=== PATIENT | female | born 1965 | race Caucasian/White ===

== ENCOUNTER 2020-11-05 12:20 | Emergency (ER) | payer OTHER ==
[~2020-11-05] VITALS: Ht 162.6 cm; Wt 72.3 kg
[2020-11-05 13:35] VITALS: BP 116/56
--- NOTE | 2020-11-05 14:41 | PHYS DOC ---
Past Medical History Past Medical History: Anxiety, Depression Past Surgical History: No Surgical History Smoking Status: Never Smoker Alcohol Use: None General Adult EDM: Chief Complaint: HEADACHE HPI: HPI: Patient is a 55-year-old female with history of depression, anxiety, who presents to the ED today complaining of moderate pain on her forehead/nasal bridge, symptoms began yesterday after she accidentally got hit by a can of soup. Patient states she was walking behind her girlfriend who was holding a can of soup and it accidentally hit her around her nasal bridge/forehead. Pat mackenzie states she bled for 1-1/2 hours. Patient presents today asking for something stronger for her pain. She states she has taken Tylenol with no relief. Patient has spent an incredible amount of time complaining about pain Review of Systems: Review of Systems: Constitutional: Denies fever or chills. [] Eyes: Denies change in visual acuity. [] HENT: Reports nasal contusion. Denies nasal congestion or sore throat. [] Respiratory: Denies cough or shortness of breath. [] Cardiovascular: Denies chest pain or edema. [] GI: Denies abdominal pain, nausea, vomiting, bloody stools or diarrhea. [] : Denies dysuria. [] Musculoskeletal: Denies back pain or joint pain. [] Integument: Denies rash. [] Neurologic: Reports headache, denies focal weakness or sensory changes. [] Psychiatric: Denies depression or anxiety. [] Heart Score: Risk Factors: Risk Factors: DM, Current or recent (<one month) smoker, HTN, HLP, family history of CAD, obesity. Risk Scores: Score 0 - 3: 2.5% MACE over next 6 weeks - Discharge Home Score 4 - 6: 20.3% MACE over next 6 weeks - Admit for Clinical Observation Score 7 - 10: 72.7% MACE over next 6 weeks - Early Invasive Strategies Physical Exam: PE: Constitutional: Well developed, well nourished, no acute distress, non-toxic gerard earance. [] HENT: No nasal deformity noted. Normocephalic, bilateral external ears normal, oropharynx moist, no oral exudates, nose normal. [] Eyes: PERRLA, EOMI, conjunctiva normal, no discharge. [] Neck: Normal range of motion, no tenderness, supple, no stridor. [] Cardiovascular:Heart rate regular rhythm, no murmur [] Lungs & Thorax: Bilateral breath sounds clear to auscultation [] Abdomen: Bowel sounds normal, soft, no tenderness, no masses, no pulsatile masses. [] Skin: Warm, dry, no erythema, no rash. [] Back: No tenderness, no CVA tenderness. [] Extremities: No tenderness, no cyanosis, no clubbing, ROM intact, no edema. [] Neurologic: Alert and oriented X 3, normal motor function, normal sensory function, no focal deficits noted. Cranial nerves II through XII intact Psychologic: Affect normal, judgement normal, mood normal. [] Current Patient Data: Vital Signs: Vital Signs Date Time Temp Pulse Resp B/P (MAP) Pulse Ox O2 Delivery O2 Flow Rate FiO2 11/05/20 13:35 98.2 71 18 116/56 (76) 100 Room Air 98.2 EKG: EKG: [] Radiology/Procedures: Radiology/Procedures: [] Course & Med Decision Making: Course & Med Decision Making Pertinent Labs and Imaging studies reviewed. (See chart for details) This is a 55-year-old female patient presenting to the ED today stating she got hit on her nasal bridge/forehead by a can of soup. See HPI. Patient presents to the ED today requesting something strong for her pain. Patient has spent an incredible amount of time talking about this pain and asking if we can give her something stronger than OTC medicines for pain. Informed her considering she has a possible head injury with nose injury we recommend a CT of the head and maxillofacial to rule out any injury. Informed her with any head injury it is recommended we avoid any narcotics to avoid masking any CHI symptoms. Recommended tylenol. Patient continually asking and begging for pain medicine, stating she wants something stronger than Tylenol. She stated if we are not going to give her anything stronger for her pain she will walk away. Informed patient I would recommend we get the CAT scan of the head and face first and see if there is any good reason for her pain. She continued to states she wants something stronger for her pain and will not stay in the ED if we do not give her something stronger for her pain. She states Tylenol is not helping her. Informed patient at this point I am going to order the CAT scan and Tylenol for pain A couple minutes later the RN informed me patient signed out AGAINST MEDICAL ADVICE stating she cannot be in the ED if we are not doing to give her anything stronger for her pain. She is alert oriented x4 and able to make her own decisions. She walked away Manuel Disclaimer: Manuel Disclaimer: This electronic medical record was generated, in whole or in part, using a voice recognition dictation system. Departure Departure Impression: Primary Impression: Forehead contusion Qualified Codes: S00.83XA - Contusion of other part of head, initial encounter Additional Impressions: Nasal contusion Qualified Codes: S00.33XA - Contusion of nose, initial encounter Epistaxis Disposition: 07 AMA/ELOPED/LWBS Condition: STABLE Referrals: NO PCP (PCP) ALYSA SANTIAGO APRN Nov 05, 2020 14:41
== END 2020-11-05 13:35 | disposition left against medical advice (07) ==
LOC: ER 12:20
DX: S00.83XA Contusion of other part of head, initial encounter (principal); S00.33XA Contusion of nose, initial encounter; F41.9 Anxiety disorder, unspecified; F32.9 Major depressive disorder, single episode, unspecified; W22.8XXA Striking against or struck by other objects, initial encounter; Y93.89 Activity, other specified; Y92.89 Other specified places as the place of occurrence of the external cause; Y99.8 Other external cause status
CPT/HCPCS: 99282

== ENCOUNTER 2021-01-27 07:38 | Emergency (ER) | payer OTHER ==
[~2021-01-27] VITALS: Ht 162.6 cm; Wt 83.0 kg
[2021-01-27 08:04] VITALS: BP 116/56
== END 2021-01-27 08:50 | disposition left against medical advice (07) ==
LOC: ER 07:38
DX: R51.9 Headache, unspecified (principal); G89.11 Acute pain due to trauma; Z53.21 Procedure and treatment not carried out due to patient leaving prior to being seen by health care provider; W10.8XXA Fall (on) (from) other stairs and steps, initial encounter; Y93.89 Activity, other specified; Y92.89 Other specified places as the place of occurrence of the external cause; Y99.8 Other external cause status

== ENCOUNTER 2021-02-16 19:26 | Emergency (ER) | payer OTHER ==
[~2021-02-16] VITALS: Ht 162.6 cm; Wt 81.1 kg
[2021-02-16] MEDS ORDERED: FAMOTIDINE 20 MG/2 ML VIAL IVP ONE (20:15)
[2021-02-16] MEDS ORDERED: IV NORMAL SALINE 1000ML BAG 1,000 ML IV ONE (20:15)
[2021-02-16] MEDS ORDERED: fentaNYL PF VIAL 100 MCG/2 ML VIAL IV ONE (20:15)
[2021-02-16] MEDS ORDERED: ONDANSETRON PF 4 MG/2 ML VIAL. IVP ONE (20:15)
[2021-02-16 20:20] LABS: BILIRUBIN,URINE NEGATIVE (NEG); CLARITY,URINE CLEAR; COLOR,URINE YELLOW; NITRITE,URINE NEGATIVE (NEG); PROTEIN,URINE NEGATIVE (NEG-TRACE); UROBILINOGEN,URINE 0.2 mg/dL (0.2 mg/dL)
[2021-02-16 20:21] LABS: BASO # 0.1 x10^3/uL (0.0-0.2); BASO % 1 % (0-3); EOS # 0.4 x10^3/uL (0.0-0.7); EOS % 5 % (0-3); HEMATOCRIT 40.6 % (36.0-47.0); HEMOGLOBIN 14.1 g/dL (12.0-15.5); LYMPH % 26 % (24-48); MEAN CORPUSCULAR HEMOGLOBIN 31 pg (25-35); MEAN CORPUSCULAR HGB CONC 35 g/dL (31-37); MEAN CORPUSCULAR VOLUME 90 fL (79-100); MONO # 0.9 x10^3/uL (0.0-1.1); MONO % 11 % (0-9); NEUT # 4.5 x10^3/uL (1.8-7.7); NEUT % 58 % (31-73); PLATELET COUNT 206 x10^3/uL (140-400); RED BLOOD COUNT 4.54 x10^6/uL (3.50-5.40); RED CELL DISTRIBUTION WIDTH 13.2 % (11.5-14.5); WHITE BLOOD COUNT 7.8 x10^3/uL (4.0-11.0)
[2021-02-16 20:32] LABS: BACTERIA,URINE MODERATE /HPF (0-FEW)
[2021-02-16 20:37] LABS: CALCIUM 9.1 mg/dL (8.5-10.1); CREATININE 0.7 mg/dL (0.6-1.0); GFR 86.2
[2021-02-16 20:49] LABS: CREATINE KINASE 49 U/L (26-192)
[2021-02-16 20:58] LABS: ALBUMIN/GLOBULIN RATIO 1.7 (1.0-1.7); TOTAL BILIRUBIN 0.3 mg/dL (0.2-1.0); TOTAL PROTEIN 6.3 g/dL (6.4-8.2)
[2021-02-16] MEDS ORDERED: CONTRAST GIVEN. MC PRN (21:15)
[2021-02-16] MEDS ORDERED: IOHEXOL 300 MG/ML 100ML VIAL. IV ONE (21:30)
[2021-02-16] MEDS ORDERED: KETOROLAC 15 MG/ML VIAL. IVP ONE (21:30)
[2021-02-16] MEDS ORDERED: IOHEXOL 240 MG/ML 50ML VIAL. PO ONE (21:30)
--- NOTE | 2021-02-16 22:13 | RAD ---
Exam Date: 02/16/2021 8:[address] ABDOMEN+PELVIS W Indication: Reason: LLQ abdominal pain, hx of diverticulitis, constipation / Spl. Instructions: DRINK @2039 OMNI 240 50 ML PO, OMNI 300 75 ML IV @2139 / History: TECHNIQUE: CT examination of the abdomen and pelvis was performed following the administration of or al and nonionic intravenous contrast. One or more of the following dose reduction techniques were ut ilized: *Automated exposure control (AEC) *Adjustment of mA and/or kV according to patient size *Use of iterative reconstruction technique *CT scan done according to ALARA, or ALARA/IMAGE GENTLY COMPARISON: November 13, 2020 FINDINGS: The visualized lung bases are clear. There is a liver cyst as well as multiple too small to characterize hypodensities in the liver, simil ar compared to the prior exam. The liver, gallbladder, spleen, pancreas, adrenal glands and kidneys are otherwise normal. Urinary bladder is normal in appearance. Diverticulosis coli is seen without bowel obstruction or inflammation. The appendix is normal. Mild atherosclerotic calcifications are seen. No lymphadenopathy or ascites is seen. Degenerative changes are seen in the spine. IMPRESSION: No evidence of acute intra-abdominal pathology. Diverticulosis without bowel inflammation or obstruction. Electronically signed by: Bossman Bowman MD (02/16/2021 10:11 PM) [facility]
[2021-02-16 22:32] VITALS: BP 124/60
[2021-02-16] MEDS ORDERED: POLY119P4 PO (22:43)
[2021-02-16] MEDS ORDERED: HYOS0.1265 SL (22:43)
[2021-02-16] MEDS ORDERED: ONDA4TAB12 PO (22:43)
[2021-02-16] MEDS ORDERED: SENN-121 PO (22:43)
--- NOTE | 2021-02-16 22:43 | PHYS DOC ---
Past Medical History Past Medical History: Anxiety, Depression, Diverticulitis, Diverticulosis Past Surgical History: No Surgical History Smoking Status: Never Smoker Alcohol Use: None General Adult EDM: Chief Complaint: CONSTIPATION HPI: HPI: Patient is a 55 year old [f__sex] who presents with [] Review of Systems: Review of Systems: Constitutional: Denies fever or chills Eyes: Denies redness or eye pain HENT: Denies nasal congestion or sore throat Respiratory: Denies cough or shortness of breath Cardiovascular: Denies chest pain or palpitations GI: Denies abdominal pain, nausea, or vomiting : Denies dysuria or hematuria Musculoskeletal: Denies back pain or joint pain Integument: Denies rash or skin lesions Neurologic: Denies headache, focal weakness or sensory changes Complete systems were reviewed and found to be within normal limits, except as documented in this note. Heart Score: C/O Chest Pain: N/A Current Medications: Current Medications Medications (Trade) Dose Ordered Sig/Rhea Start Time Stop Time Status Last Admin Dose Admin Famotidine (Pepcid Vial) 20 mg 1X ONCE 02/16/21 20:15 02/16/21 20:39 DC 02/16/21 20:53 20 MG Fentanyl Citrate (Fentanyl 2ml Vial) 50 mcg 1X ONCE 02/16/21 20:15 02/16/21 20:39 DC 02/16/21 20:49 50 MCG Info (CONTRAST GIVEN -- Rx MONITORING) 1 each PRN DAILY PRN 02/16/21 21:15 02/18/21 21:14 Iohexol (Omnipaque 240 Mg/ml) 50 ml 1X ONCE 02/16/21 21:30 02/16/21 21:31 DC 02/16/21 21:34 50 ML Iohexol (Omnipaque 300 Mg/ml) 75 ml 1X ONCE 02/16/21 21:30 02/16/21 21:31 DC 02/16/21 21:58 75 ML Ketorolac Tromethamine (Toradol 15mg Vial) 15 mg 1X ONCE 02/16/21 21:30 02/16/21 21:31 DC 02/16/21 21:23 15 MG Ondansetron HCl (Zofran) 4 mg 1X ONCE 02/16/21 20:15 02/16/21 20:39 DC 02/16/21 20:53 4 MG Sodium Chloride 1,000 ml @ 1,000 mls/hr 1X ONCE 02/16/21 20:15 02/16/21 21:14 DC 02/16/21 20:49 1,000 MLS/HR Allergies: Allergies: Allergies Coded Allergies Type Severity Reaction Last Updated Verified Sulfa (Sulfonamide Antibiotics) Allergy Intermediate SWELLING 02/16/21 Yes morphine Allergy Intermediate RASH 02/16/21 Yes quetiapine Allergy Intermediate SEIZURE 02/16/21 Yes Physical Exam: PE: Constitutional: Well developed, well nourished, no acute distress, non-toxic appearance HENT: Normocephalic, atraumatic Eyes: PERRL, EOMI, conjunctiva normal, no discharge Neck: Normal range of motion, no tenderness, supple Lungs & Thorax: No respiratory distress, equal chest rise and fall Abdomen: Soft, no tenderness Skin: Warm, dry, no erythema, no rash Back: No tenderness, no CVA tenderness Extremities: No tenderness, ROM intact, no edema Neurologic: Alert and oriented X 3, normal motor function, normal sensory function, no focal deficits noted Psychologic: Affect normal, judgment normal Current Patient Data: Labs: Laboratory Tests Test 02/16/21 19:40 02/16/21 20:14 Urine Collection Type Unknown Urine Color Yellow Urine Clarity Clear Urine pH 8.0 (<5.0-8.0) Urine Specific Dixon >=1.030 (1.000-1.030) Urine Protein Negative mg/dL (NEG-TRACE) Urine Glucose (UA) Negative mg/dL (NEG) Urine Ketones (Stick) Negative mg/dL (NEG) Urine Blood Negative (NEG) Urine Nitrite Negative (NEG) Urine Bilirubin Negative (NEG) Urine Urobilinogen Dipstick 0.2 mg/dL (0.2 mg/dL) Urine Leukocyte Esterase Small (NEG) Urine RBC 1-2 /HPF (0-2) Urine WBC 5-10 /HPF (0-4) Urine Squamous Epithelial Cells Mod /LPF Urine Bacteria Moderate /HPF (0-FEW) White Blood Count 7.8 x10^3/uL (4.0-11.0) Red Blood Count 4.54 x10^6/uL (3.50-5.40) Hemoglobin 14.1 g/dL (12.0-15.5) Hematocrit 40.6 % (36.0-47.0) Mean Corpuscular Volume 90 fL (79-100) Mean Corpuscular Hemoglobin 31 pg (25-35) Mean Corpuscular Hemoglobin Concent 35 g/dL (31-37) Red Cell Distribution Width 13.2 % (11.5-14.5) Platelet Count 206 x10^3/uL (140-400) Neutrophils (%) (Auto) 58 % (31-73) Lymphocytes (%) (Auto) 26 % (24-48) Monocytes (%) (Auto) 11 % (0-9) H Eosinophils (%) (Auto) 5 % (0-3) H Basophils (%) (Auto) 1 % (0-3) Neutrophils # (Auto) 4.5 x10^3/uL (1.8-7.7) Lymphocytes # (Auto) 2.0 x10^3/uL (1.0-4.8) Monocytes # (Auto) 0.9 x10^3/uL (0.0-1.1) Eosinophils # (Auto) 0.4 x10^3/uL (0.0-0.7) Basophils # (Auto) 0.1 x10^3/uL (0.0-0.2) Sodium Level 143 mmol/L (136-145) Potassium Level 4.0 mmol/L (3.5-5.1) Chloride Level 107 mmol/L (98-107) Carbon Dioxide Level 25 mmol/L (21-32) Anion Gap 11 (6-14) Blood Urea Nitrogen 15 mg/dL (7-20) Creatinine 0.7 mg/dL (0.6-1.0) Estimated GFR (Cockcroft-Gault) 86.2 BUN/Creatinine Ratio 21 (6-20) H Glucose Level 115 mg/dL (70-99) H Lactic Acid Level 0.7 mmol/L (0.4-2.0) Calcium Level 9.1 mg/dL (8.5-10.1) Total Bilirubin 0.3 mg/dL (0.2-1.0) Aspartate Amino Transferase (AST) 18 U/L (15-37) Alanine Aminotransferase (ALT) 32 U/L (14-59) Alkaline Phosphatase 83 U/L (46-116) Creatine Kinase 49 U/L (26-192) Creatine Kinase MB (Mass) 0.5 ng/mL (0.0-3.6) Creatine Kinase MB Relative Index % (0-4) Troponin I Quantitative < 0.017 ng/mL (0.000-0.055) Total Protein 6.3 g/dL (6.4-8.2) L Albumin 4.0 g/dL (3.4-5.0) Albumin/Globulin Ratio 1.7 (1.0-1.7) Lipase 141 U/L (73-393) Laboratory Tests 02/16/21 20:14 Laboratory Tests 02/16/21 20:14 Vital Signs: Vital Signs Date Time Temp Pulse Resp B/P (MAP) Pulse Ox O2 Delivery O2 Flow Rate FiO2 02/16/21 21:23 22 96 Room Air 02/16/21 19:30 98.4 71 93/53 (66) 98.4 EKG: EKG: @2203 NSR at 81bpm, NO ST elevation, QRS 90ms, QT/QTc 364/428ms, baseline artifact noted Radiology/Procedures: Radiology/Procedures: PROCEDURE: CT ABD PELV W/ORAL&IV CONTRAST Exam Date: 02/16/2021 8:[address] ABDOMEN+PELVIS W Indication: Reason: LLQ abdominal pain, hx of diverticulitis, constipation / Spl. Instructions: DRINK @2039 OMNI 240 50 ML PO, OMNI 300 75 ML IV @0 / History: TECHNIQUE: CT examination of the abdomen and pelvis was performed following the administration of oral and nonionic intravenous contrast. One or more of the following dose reduction techniques were utilized: *Automated exposure control (AEC) *Adjustment of mA and/or kV according to patient size *Use of iterative reconstruction technique *CT scan done according to ALARA, or ALARA/IMAGE GENTLY COMPARISON: November 13, 2020 FINDINGS: The visualized lung bases are clear. There is a liver cyst as well as multiple too small to characterize hypodensities in the liver, similar compared to the prior exam. The liver, gallbladder, spleen, pancreas, adrenal glands and kidneys are otherwise normal. Urinary bladder is normal in appearance. Diverticulosis coli is seen without bowel obstruction or inflammation. The appendix is normal. Mild atherosclerotic calcifications are seen. No lymphadenopathy or ascites is seen. Degenerative changes are seen in the spine. IMPRESSION: No evidence of acute intra-abdominal pathology. Diverticulosis without bowel inflammation or obstruction. Electronically signed by: Bossman Bowman MD (02/16/2021 10:11 PM) [facility] Course & Med Decision Making: Course & Med Decision Making Pertinent Labs and Imaging studies reviewed. (See chart for details) Patient stable for discharge with outpatient follow-up with PCP/GI. GI referral provided. Discussed findings and plan with patient, who acknowledges understanding and agreement. Dragon Disclaimer: Dragon Disclaimer: This electronic medical record was generated, in whole or in part, using a voice recognition dictation system. Departure Departure Impression: Primary Impression: Abdominal pain Qualified Codes: R10.32 - Left lower quadrant pain Additional Impression: Nausea Disposition: HOME / SELF CARE / HOMELESS Condition: STABLE Referrals: NO PCP (PCP) AD CAMEJO MD Patient Instructions: Abdominal Pain, Xaob-cy-Mgba, Constipation, Adult, [id number], Nausea, Adult, [id number] Additional Instructions: Increase fluid hydration Scripts Polyethylene Glycol 3350 (MIRALAX) 119 Gm Powder 17 GM PO DAILY PRN for CONSTIPATION, #255 GM 0 Refills dissolve in water Prov: CLIFTON HUGHES DO 02/16/21 Sennosides/Docusate Sodium (Colace 2-in-1 Tablet) 1 Each Tablet 1 TAB PO QHS, #30 TAB 0 Refills Prov: CLIFTON HUGHES DO 02/16/21 Ondansetron (ONDANSETRON ODT) 4 Mg Tab.rapdis 1 TAB PO PRN Q6-8HRS PRN for NAUSEA, #16 TAB Prov: CLIFTON HUGHES DO 02/16/21 Hyoscyamine Sulfate (LEVSIN-SL) 0.125 Mg Tab.subl 0.125 MG SL Q4-6HRS PRN for PAIN, #14 TAB Prov: CLIFTON HUGHES DO 02/16/21 CLIFTON HUGHES DO Feb 16, 2021 22:43
[2021-02-16] MEDS ORDERED: HYOSCYAMINE 0.125 MG TAB.RAPDIS PO ONE (23:00)
--- NOTE | 2021-02-16 23:02 | EKG ---
[facility] [address] [place] [address] Test Date: 2021-02-16 Test Time: 22:03:28 Pat Name: ASHLYN HARE Department: Room: Gender: F Drafter Cartographic: : 1965 Requested By: CLIFTON HUGHES Order Number: [id number] Reading MD: Measurements Intervals Nathalie Rate: 81 P: 52 MD: 132 QRS: 62 QRSD: 90 T: 34 QT: 364 QTc: 428 Interpretive Statements SINUS RHYTHM LEFT ATRIAL ABNORMALITY ABNORMAL ECG RI6.02 No previous ECG available for comparison
--- NOTE | 2021-02-19 10:28 | NUR ---
I spoke with the patient about her urine culture result. Pt is experiencing increased urinary frequency. Will call in rx for Ciprofloxacin 500 mg PO BID x5 days to the [facility] on [address] as requested. I encouraged pt to follow up with her PCP.
== END 2021-02-16 22:52 | disposition home or self-care (01) ==
LOC: ER 19:26
DX: R10.32 Left lower quadrant pain (principal); R11.0 Nausea; Z88.2 Allergy status to sulfonamides; Z88.5 Allergy status to narcotic agent; Z88.8 Allergy status to other drugs, medicaments and biological substances
CPT/HCPCS: 36415; 74177; 80053; 81001; 82553; 83605; 83690; 84484; 85025; 87077; 87086; 87186; 93005; 96361; 96374; 96375; 99285; J1885; J2405; J3010; J3490; J7030; Q9966; Q9967

== ENCOUNTER 2021-02-23 12:19 | Emergency (ER) | payer OTHER ==
[~2021-02-23] VITALS: Ht 162.6 cm; Wt 74.0 kg
[~2021-02-23 12:19] MED LIST: HYOS0.1265 SL; ONDA4TAB12 PO; POLY119P4 PO; SENN-121 PO
--- NOTE | 2021-02-23 13:36 | RAD ---
ABDOMEN AP, UPRIGHT AND SUPINE Clinical Indication: Reason: constipation, pain / Comparison: CT abdomen and pelvis with contrast February 16, 2021. Findings: Visualized lung bases are clear. No dilated loops of bowel are seen. The bowel gas pattern is nonobstructive. There are diverticula of the distal colon. There are no air-fluid levels on the upright image. No organomegaly is seen. There is no radiopaque foreign body or calculus. There is no acute bony abnormality. IMPRESSION: Nonobstructive bowel gas pattern. Electronically signed by: Jamey Wyatt MD (02/23/2021 1:34 PM) [facility]
[2021-02-23] MEDS ORDERED: MAGNESIUM CITRATE 296 ML SOLUTION. PO ONE (14:00)
[2021-02-23] MEDS ORDERED: ONDANSETRON ODT 4 MG TAB.RAPDIS. PO ONE (14:00)
[2021-02-23] MEDS ORDERED: BISACODYL 5 MG TABLET.DR. PO STA (14:00)
[2021-02-23] MEDS ORDERED: fentaNYL PF VIAL 100 MCG/2 ML VIAL IM ONE (14:00)
[2021-02-23 15:20] VITALS: BP 127/86
--- NOTE | 2021-02-23 15:47 | PHYS DOC ---
Past Medical History Past Medical History: Anxiety, Depression, Diverticulitis, Diverticulosis Past Surgical History: No Surgical History Smoking Status: Never Smoker Alcohol Use: None General Adult EDM: Chief Complaint: ABDOMINAL PAIN HPI: HPI: Patient is a 55 year old female with history of anxiety, diverticulitis, diverticulosis, depression, who presents to the ED today to be evaluated for 8 out of 10 left lower quadrant abdominal pain described as cramping and intermittent, symptoms began 8 days ago. Patient states she has not had normal bowel movement for 8 days. She states she was seen in the ED 8 days ago was diagnosed with diverticulosis and constipation, was sent home with high hycosamine, senna docusate, and MiraLAX. She states she did not take MiraLAX. She states she took the same for 1 or 2 days. Patient is very insistent on having pain medicine. She states her last bowel movement was 8 days ago and small. Patient is very insistent on getting pain medicine. Review of Systems: Review of Systems: Constitutional: Denies fever or chills. [] Eyes: Denies change in visual acuity. [] HENT: Denies nasal congestion or sore throat. [] Respiratory: Denies cough or shortness of breath. [] Cardiovascular: Denies chest pain or edema. [] GI: Reports abdominal pain with constipation, denies nausea, vomiting, bloody stools or diarrhea. [] : Denies dysuria. [] Musculoskeletal: Denies back pain or joint pain. [] Integument: Denies rash. [] Neurologic: Denies headache, focal weakness or sensory changes. [] Psychiatric: Denies depression or anxiety. [] Heart Score: C/O Chest Pain: N/A Risk Factors: Risk Factors: DM, Current or recent (<one month) smoker, HTN, HLP, family history of CAD, obesity. Risk Scores: Score 0 - 3: 2.5% MACE over next 6 weeks - Discharge Home Score 4 - 6: 20.3% MACE over next 6 weeks - Admit for Clinical Observation Score 7 - 10: 72.7% MACE over next 6 weeks - Early Invasive Strategies Current Medications: Current Medications Medications (Trade) Dose Ordered Sig/Rhea Start Time Stop Time Status Last Admin Dose Admin Bisacodyl (Dulcolax Tab) 10 mg 1X STAT 02/23/21 14:00 02/23/21 14:02 DC 02/23/21 14:48 10 MG Fentanyl Citrate (Fentanyl 2ml Vial) 50 mcg 1X ONCE 02/23/21 14:00 02/23/21 14:02 DC 02/23/21 14:49 50 MCG Magnesium Citrate (Citroma) 296 ml 1X ONCE 02/23/21 14:00 02/23/21 14:02 DC 02/23/21 14:00 296 ML Ondansetron HCl (Zofran Odt) 4 mg 1X ONCE 02/23/21 14:00 02/23/21 14:02 DC 02/23/21 14:48 4 MG Allergies: Allergies: Allergies Coded Allergies Type Severity Reaction Last Updated Verified Sulfa (Sulfonamide Antibiotics) Allergy Intermediate SWELLING 02/16/21 Yes morphine Allergy Intermediate RASH 02/16/21 Yes quetiapine Allergy Intermediate SEIZURE 02/16/21 Yes Physical Exam: PE: Constitutional: Well developed, well nourished, no acute distress, non-toxic appearance. [] HENT: Normocephalic, atraumatic, bilateral external ears normal, oropharynx moist, no oral exudates, nose normal. [] Eyes: PERRLA, EOMI, conjunctiva normal, no discharge. [] Neck: Normal range of motion, no tenderness, supple, no stridor. [] Cardiovascular:Heart rate regular rhythm, no murmur [] Lungs & Thorax: Bilateral breath sounds clear to auscultation [] Abdomen: Bowel sounds normal, soft, no tenderness, no masses, no pulsatile masses. [] Skin: Warm, dry, no erythema, no rash. [] Back: No tenderness, no CVA tenderness. [] Extremities: No tenderness, no cyanosis, no clubbing, ROM intact, no edema. [] Neurologic: Alert and oriented X 3, normal motor function, normal sensory function, no focal deficits noted. [] Psychologic: Flat affect. Current Patient Data: Vital Signs: Vital Signs Date Time Temp Pulse Resp B/P (MAP) Pulse Ox O2 Delivery O2 Flow Rate FiO2 02/23/21 14:49 18 97 Room Air 02/23/21 12:25 97.9 87 135/61 (85) 97.9 EKG: EKG: [] Radiology/Procedures: Radiology/Procedures: []PROCEDURE: ABDOMEN SUPINE & UPRIGHT ABDOMEN AP, UPRIGHT AND SUPINE Clinical Indication: Reason: constipation, pain / Comparison: CT abdomen and pelvis with contrast February 16, 2021. Findings: Visualized lung bases are clear. No dilated loops of bowel are seen. The bowel gas pattern is nonobstructive. There are diverticula of the distal colon. There are no air-fluid levels on the upright image. No organomegaly is seen. There is no radiopaque foreign body or calculus. There is no acute bony abnormality. IMPRESSION: Nonobstructive bowel gas pattern. Electronically signed by: Jamey Jernigan MD (02/23/2021 1:34 PM) [facility] DICTATED and SIGNED BY: JAMEY JERNIGAN MD DATE: 02/23/21 [id number] Course & Med Decision Making: Course & Med Decision Making Pertinent Labs and Imaging studies reviewed. (See chart for details) This is a 55-year-old female patient presented to the ED today complaining of left lower quadrant abdominal pain, constipation, symptoms for 8 days. Patient reports being seen in the ED 8 days ago and was told she has diverticulosis and constipation. Was sent home with medications. She sounds like she was not taking the medications as prescribed. She is very insistent on having pain medicine. Alternative measures discussed, patient continuously states none of them will work she needs something for pain. I did offer her 1 dose of fentanyl but reminded her that this will worsen her constipation, patient insisted on getting the medicine. Abdomen x-rays are negative for any acute findings. Recommended milk of molasses enema and also give a mag citrate and Dulcolax in the ED. Patient at this point hesitant to wait for her milk of molasses enema. She states she would like to go home if we are not giving her any more pain medicine. Offered her Toradol. Informed her we cannot continue to give her narcotic pain medicine it will make her constipation worse she decided to leave. Manuel Disclaimer: Manuel Disclaimer: This electronic medical record was generated, in whole or in part, using a voice recognition dictation system. Departure Departure Impression: Primary Impression: Constipation Qualified Codes: K59.00 - Constipation, unspecified Additional Impression: Diverticulosis Disposition: HOME / SELF CARE / HOMELESS Condition: STABLE Referrals: NO PCP (PCP) AD CAMEJO MD Follow-up in 1 week Patient Instructions: Constipation, Adult, [id number] Additional Instructions: Please consider following up with a GI doctor. Increase your dietary fiber intake as well as your water intake to 64 ounces a day. Please take magnesium Citrate 1 more bottle when you get home. Take MiraLAX every day as well as a stool softener. ALYSA SANTIAGO APRN Feb 23, 2021 15:47
== END 2021-02-23 15:45 | disposition home or self-care (01) ==
LOC: ER 12:19
DX: K57.90 Diverticulosis of intestine, part unspecified, without perforation or abscess without bleeding (principal); K59.00 Constipation, unspecified; Z88.2 Allergy status to sulfonamides; Z88.5 Allergy status to narcotic agent; Z88.8 Allergy status to other drugs, medicaments and biological substances
CPT/HCPCS: 74021; 96372; 99284; J3010

== ENCOUNTER 2021-05-18 21:19 | Emergency (ER) | payer OTHER ==
[~2021-05-18] VITALS: Ht 162.6 cm; Wt 80.0 kg
[2021-05-18] MEDS ORDERED: IV NORMAL SALINE 1000ML BAG 1,000 ML IV ONE (21:30)
[2021-05-18] MEDS ORDERED: ASPIRIN 325 MG TABLET PO ONE (21:30)
--- NOTE | 2021-05-18 21:37 | PHYS DOC ---
Past Medical History Past Medical History: Anxiety, Cancer (breast), COPD, Depression, Diverti culitis, Diverticulosis Additional Past Surgical Histo: bilateral mastectomy Smoking Status: Never Smoker Alcohol Use: None Drug Use: None General Adult EDM: Chief Complaint: CHEST PAIN-NON CARDIAC NATURE HPI: HPI: Patient is a 55-year-old female presents with report of midsternal chest pain that radiates to her left back and has been intermittent in nature for the past 2 months. Patient reports she has not been seen for this pain. Patient reports associated headache. Denies fever or chills. Patient does report a mild cough. Denies known exposure to COVID-19. Denies leg swelling or calf tenderness. Review of Systems: Review of Systems: Constitutional: Denies fever or chills Eyes: Denies redness or eye pain HENT: Denies nasal congestion or sore throat Respiratory: Reports cough and shortness of breath Cardiovascular: Reports chest pain; denies palpitations GI: Denies abdominal pain, nausea, or vomiting : Denies dysuria or hematuria Musculoskeletal: Denies back pain or joint pain Integument: Denies rash or skin lesions Neurologic: Reports headache; denies focal weakness or sensory changes Complete systems were reviewed and found to be within normal limits, except as documented in this note. Heart Score: C/O Chest Pain: Yes HEART Score for Chest Pain: HEART Score for Chest Pain Response (Comments) Value History Moderately Suspicious 1 ECG Normal 0 Age >45 - < 65 1 Risk Factors 1 or 2 Risk Factors 1 Troponin < Normal Limit 0 Total 3 Risk Factors: Risk Factors: DM, Current or recent (<one month) smoker, HTN, HLP, family history of CAD, obesity. Risk Scores: Score 0 - 3: 2.5% MACE over next 6 weeks - Discharge Home Score 4 - 6: 20.3% MACE over next 6 weeks - Admit for Clinical Observation Score 7 - 10: 72.7% MACE over next 6 weeks - Early Invasive Strategies Allergies: Allergies: Allergies Coded Allergies Type Severity Reaction Last Updated Verified Sulfa (Sulfonamide Antibiotics) Allergy Intermediate SWELLING 02/16/21 Yes morphine Allergy Intermediate RASH 02/16/21 Yes quetiapine Allergy Intermediate SEIZURE 02/16/21 Yes Physical Exam: PE: Constitutional: Well developed, well nourished, no acute distress, non-toxic appearance HENT: Normocephalic, atraumatic Eyes: Conjunctiva normal, no discharge Neck: Normal range of motion, supple Lungs & Thorax: No respiratory distress, equal chest rise and fall Abdomen: Soft, no tenderness Skin: Warm, dry, no erythema, no rash Back: No tenderness, no CVA tenderness Extremities: No tenderness, ROM intact, no edema Neurologic: Alert and oriented X 3, no focal deficits noted Psychologic: Affect anxious, judgment normal EKG: EKG: @2125 NSR at 85bpm, NO ST elevation, QRS 88ms, QT/QTc 354/421ms @2158 NSR at 76bpm, NO ST elevation, QRS 92ms, QT/QTc 374/425ms, no significant change from prior. @2239 NSR at 74bpm, NO ST elevation, QRS 88ms, QT/QTc 372/413ms, baseline artifact Radiology/Procedures: Radiology/Procedures: PROCEDURE: CHEST AP ONLY Chest AP portable at 12:15: Reason for examination: Chest pain. The heart size is normal. Mediastinum is unremarkable. Lung kaplan show some hazy opacity in the mid to lower left lung field peripherally which may reflect some infiltrate. No pleural effusions or pneumothorax are seen. No acute bony abnormality seen. Surgical clips are seen bilaterally in the axilla. IMPRESSION: Mild hazy density in the periphery of the left mid to lower lung field which may reflect infiltrate. Recommend clinical correlation and follow-up. Electronically signed by: Marjorie Jeter MD (05/19/2021 5:05 AM) [facility] Course & Med Decision Making: Course & Med Decision Making Pertinent Labs and Imaging studies reviewed. (See chart for details) Patient with minimal cardiac risk factors presents with 2-month history of intermittent chest pain with radiation to back. EKGs stable. Labs obtained and posted to chart. D-dimer within normal limits. Troponin also within normal limits. Chest x-ray with some signs of atelectasis versus infiltrate. Patient does report some cough but denies any fever. WBC within normal limits. Will ho ld antibiotic therapy at this time. HEART score 3. Patient stable for discharge with outpatient follow-up with PCP. Discussed findings and plan with patient, who acknowledges understanding and agreement. Manuel Disclaimer: Manuel Disclaimer: This electronic medical record was generated, in whole or in part, using a voice recognition dictation system. Departure Departure Impression: Primary Impression: Chest pain Qualified Codes: R07.9 - Chest pain, unspecified Additional Impression: Headache Qualified Codes: R51.9 - Headache, unspecified Disposition: 01 HOME / SELF CARE / HOMELESS Condition: STABLE Referrals: NO PCP (PCP) AD CAMEJO MD Patient Instructions: Chest Pain (Nonspecific), [id number], Gastritis, Adult, [id number], Headache, FAQs Additional Instructions: Increase fluid hydration. Take over the counter Tylenol and/or Ibuprofen for pain or discomfort. Scripts Famotidine (PEPCID) 20 Mg Tablet 20 MG PO BID, #20 TAB Prov: CLIFTON HUGHES DO 05/19/21 CLIFTON HUGHES DO May 18, 2021 21:37
[2021-05-18] MEDS ORDERED: KETOROLAC 15 MG/ML VIAL. IVP ONE (22:15)
[2021-05-18 22:26] LABS: BASO # 0.1 x10^3/uL (0.0-0.2); BASO % 2 % (0-3); EOS # 0.4 x10^3/uL (0.0-0.7); EOS % 5 % (0-3); HEMATOCRIT 39.3 % (36.0-47.0); HEMOGLOBIN 13.4 g/dL (12.0-15.5); LYMPH % 26 % (24-48); MEAN CORPUSCULAR HEMOGLOBIN 31 pg (25-35); MEAN CORPUSCULAR HGB CONC 34 g/dL (31-37); MEAN CORPUSCULAR VOLUME 89 fL (79-100); MONO # 0.7 x10^3/uL (0.0-1.1); MONO % 9 % (0-9); NEUT # 4.6 x10^3/uL (1.8-7.7); NEUT % 59 % (31-73); PLATELET COUNT 223 x10^3/uL (140-400); RED CELL DISTRIBUTION WIDTH 13.2 % (11.5-14.5); WHITE BLOOD COUNT 7.9 x10^3/uL (4.0-11.0)
[2021-05-18 22:40] LABS: CALCIUM 8.7 mg/dL (8.5-10.1); CREATININE 0.7 mg/dL (0.6-1.0); GFR 86.2; POTASSIUM 3.6 mmol/L (3.5-5.1)
[2021-05-18 22:45] LABS: ALBUMIN 3.1 g/dL (3.4-5.0); ALBUMIN/GLOBULIN RATIO 1.1 (1.0-1.7); MAGNESIUM 1.9 mg/dL (1.8-2.4); TOTAL BILIRUBIN 0.1 mg/dL (0.2-1.0); TOTAL PROTEIN 5.9 g/dL (6.4-8.2)
[2021-05-18 22:52] LABS: CREATINE KINASE 124 U/L (26-192)
[2021-05-18] MEDS ORDERED: BUTALB/APAP/CAFEIN 50/325/40MG TABLET. PO ONE (23:15)
[2021-05-18 23:35] LABS: BILIRUBIN,URINE NEGATIVE (NEG); CLARITY,URINE CLOUDY; COLOR,URINE YELLOW; NITRITE,URINE NEGATIVE (NEG); PH,URINE 6.5 (<5.0-8.0); PROTEIN,URINE NEGATIVE (NEG-TRACE)
[2021-05-18 23:42] LABS: PARTIAL THROMBOPLASTIN TIME 45 SEC (24-38)
[2021-05-18 23:46] LABS: BACTERIA,URINE FEW /HPF (0-FEW)
[2021-05-18 23:47] LABS: D-DIMER < 0.27 ug/mlFEU (0.00-0.50)
[2021-05-19] MEDS ORDERED: FAMO-63 PO (00:13)
[2021-05-19] MEDS ORDERED: fentaNYL PF VIAL 100 MCG/2 ML VIAL IV ONE (00:15)
[2021-05-19] MEDS ORDERED: FAMOTIDINE 20 MG/2 ML VIAL IVP ONE (00:15)
[2021-05-19] MEDS ORDERED: LIDO:MAALOX 1:1 20 ML SINGLE DOSE. PO ONE (00:15)
[2021-05-19 01:25] VITALS: BP 106/57
--- NOTE | 2021-05-19 05:08 | RAD ---
Chest AP portable at 12:15: Reason for examination: Chest pain. The heart size is normal. Mediastinum is unremarkable. Lung kaplan show some hazy opacity in the mid to lower left lung field peripherally which may reflect some infiltrate. No pleural effusions or pneu mothorax are seen. No acute bony abnormality seen. Surgical clips are seen bilaterally in the axilla. IMPRESSION: Mild hazy density in the periphery of the left mid to lower lung field which may reflect infiltrate. Recommend clinical correlation and follow-up. Electronically signed by: Marjorie Jeter MD (05/19/2021 5:05 AM) [facility]
--- NOTE | 2021-05-19 14:59 | EKG ---
[facility] [address] [place] [address] Test Date: 2021-05-18 Test Time: 21:58:39 Pat Name: ASHLYN HARE Department: Room: Gender: F Forestry Laborer: : 1965 Requested By: CLIFTON HUGHES Order Number: [id number] Reading MD: Measurements Intervals [place] Rate: 76 P: 56 [place]: 136 QRS: 57 QRSD: 92 T: 36 QT: 374 QTc: 425 Interpretive Statements SINUS RHYTHM NORMAL ECG RI6.02 Compared to ECG 05/18/2021 21:25:11 No significant changes
--- NOTE | 2021-05-19 14:59 | EKG ---
[facility] [address] [place] [address] Test Date: 2021-05-18 Test Time: 21:25:11 Pat Name: ASHLYN HARE Department: Room: Gender: F Deputy Director Of Nursing: : 1965 Requested By: CLIFTON HUGHES Order Number: [id number] Reading MD: Measurements Intervals [place] Rate: 85 P: 59 WI: 128 QRS: 60 QRSD: 88 T: 44 QT: 354 QTc: 421 Interpretive Statements SINUS RHYTHM NORMAL ECG RI6.02 No previous ECG available for comparison
--- NOTE | 2021-05-19 14:59 | EKG ---
[facility] [address] [place] [address] Test Date: 2021-05-18 Test Time: 22:39:05 Pat Name: ASHLYN HARE Department: Room: Gender: F Marketing Secretary: : 1965 Requested By: CLIFTON HUGHES Order Number: [id number] Reading MD: Measurements Intervals [place] Rate: 74 P: [place]: QRS: 73 QRSD: 88 T: 49 QT: 372 QTc: 413 Interpretive Statements ATRIAL FLUTTER ABNORMAL ECG RI6.02 Compared to ECG 05/18/2021 21:58:39 Sinus rhythm no longer present
== END 2021-05-19 01:40 | disposition home or self-care (01) ==
LOC: ER 21:19
DX: R07.2 Precordial pain (principal); R51.9 Headache, unspecified; R06.02 Shortness of breath; F41.9 Anxiety disorder, unspecified; J44.9 Chronic obstructive pulmonary disease, unspecified; F32.9 Major depressive disorder, single episode, unspecified; Z88.2 Allergy status to sulfonamides; Z88.5 Allergy status to narcotic agent; Z88.8 Allergy status to other drugs, medicaments and biological substances
CPT/HCPCS: 36415; 71045; 80053; 81001; 82553; 83690; 83735; 83880; 84484; 85025; 85379; 85610; 85730; 87086; 93005; 96361; 96374; 96375; 99285; J1885; J3010; J3490; J7030